=== PATIENT | female | born 1955 | race Caucasian/White ===

== ENCOUNTER 2023-08-28 05:59 | Day surgery (SDC) | payer BC ==
[2023-08-27 10:10] VITALS: BMI 31.1
[~2023-08-28 05:59] MED LIST: EPINEPHrine 0.3 MG in Ophthalmic Irrigation Solution 500 ML IRR SCH
[2023-08-28] MEDS ORDERED: Cyclopentolate 0.5% Opth Drops 15 ML BOT ONE (06:19)
[2023-08-28] MEDS ORDERED: PHENYLephrine 2.5% Ophth Soln 15 ml Bottle ONE (06:19)
[2023-08-28] MEDS ORDERED: Midazolam HCl 2 mg/2 ml Vial ONE (06:30)
[2023-08-28] MEDS ORDERED: PROPOFOL 20 ML ONE (06:30)
[2023-08-28] MEDS ORDERED: fentaNYL 50 mcg/mL 1 mL Vial ONE (06:30)
[2023-08-28] MEDS ORDERED: Lidocaine 1% PF 5 ML VIAL ONE ×2 (06:30→07:08)
[2023-08-28] MEDS ORDERED: Lidocaine 4% PF 5 ML AMP ONE (07:08)
[2023-08-28] MEDS ORDERED: Triamcinolone 40 MG/ML VIAL ONE (07:08)
[2023-08-28] MEDS ORDERED: Indocyanine Green 25 MG/10 ML VIAL ONE (07:08)
[2023-08-28] MEDS ORDERED: CEFAZOLIN 1 GM VIAL ONE (07:08)
[2023-08-28] MEDS ORDERED: Bupivacaine 0.75% 10 ML VIAL ONE (07:08)
[2023-08-28] MEDS ORDERED: Bupivacaine HCl 0.5%/Epinephrine 1:200,000/PF 30 ml Vial ONE (13:59)
[2023-08-28] MEDS ORDERED: Dexamethasone 20 MG/5 ML VIAL ONE (13:59)
[2023-08-28] MEDS ORDERED: Ketorolac Tromethamine 30 MG (1 mL) VIAL ONE (13:59)
[2023-08-28] MEDS ORDERED: Ondansetron PF 4 MG/2 ML Vial ONE (13:59)
== END 2023-08-28 08:52 | disposition home or self-care (01) ==
LOC: SDC 05:59
PROVIDERS: ATTEND Ophthalmology Retina Specialist
PROC: 08T43ZZ Resection of Right Vitreous, Percutaneous Approach (ICD-10-PCS; principal; 2023-08-28)
DX: H33.021 Retinal detachment with multiple breaks, right eye (principal); Z88.8 Allergy status to other drugs, medicaments and biological substances; Z88.1 Allergy status to other antibiotic agents
CPT/HCPCS: 67025; J0171; J0690; J1100; J1885; J2250; J2405; J2704; J3010; J3301; J3490